=== PATIENT | female | born 1960 | race Hispanic/Latino ===

== ENCOUNTER 2017-09-25 23:14 | Emergency (ER) | payer BC ==
[~2017-09-25] VITALS: Ht 165.1 cm; Wt 81.2 kg
--- NOTE | 2017-09-26 01:17 | Diagnostic Imaging Report ---
EXAMINATION: CHEST SINGLE (PORTABLE) INDICATION: Status post fall. COMPARISON: None FINDINGS: TUBES and LINES: None. LUNGS: Lungs are well inflated. Lungs are clear. There is no evidence of pneumonia or pulmonary edema. PLEURA: No pleural effusion or pneumothorax. HEART AND MEDIASTINUM: The cardiomediastinal silhouette is unremarkable. BONES AND SOFT TISSUES: No acute osseous lesion. Soft tissues are unremarkable. UPPER ABDOMEN: No free air under the diaphragm. IMPRESSION: No acute thoracic abnormality. Signed by: Dr. Javier Sr M.D. on 09/26/2017 1:14 AM
--- NOTE | 2017-09-26 01:31 | Diagnostic Imaging Report ---
EXAMINATION: Head CT without contrast. HISTORY:Fall. COMPARISON:None. TECHNIQUE: Multidetector axial images were obtained from the foramen magnum to the vertex without contrast. The images were reconstructed using brain and bone algorithms. Thin section brain images were reformatted into coronal and sagittal planes. Intravenous contrast: None IMAGE QUALITY: Acceptable. FINDINGS: Skull/scalp: Minimal left frontal scalp edema. No acute depressed or displaced calvarial fracture. Nonspecific punctate radiopaque density in the midoccipital scalp may represent calcification or foreign body. Parenchyma: No abnormal density. No acute hemorrhage, mass or acute major vascular territorial infarct. Arteries: No density suggestive of thrombosis. Dural sinuses: No abnormal density suggestive of thrombosis. Ventricles: No hydrocephalus or displacement. Extra-axial spaces: No abnormal density. Brain volume: Mild generalized cerebral volume loss. Craniocervical junction: No mass, Chiari malformation, or basilar invagination. Sella: No mass. Paranasal/mastoid sinuses: Imaged portions unremarkable. IMPRESSION: 1. Mild left frontal scalp edema. No acute fracture. 2. No acute posttraumatic intracranial abnormality. 3. Mild generalized cerebral volume loss. Signed by: Dr. Gale Holland M.D. on 09/26/2017 1:27 AM
--- NOTE | 2017-09-26 01:36 | Diagnostic Imaging Report ---
History: Fall. Comparison studies: None Technique: Axial images were obtained through the cervical region.. Coronal and sagittal images reconstructed from the axial data.. Intravenous contrast: None Findings: Fractures: None. Soft tissue injuries: None. Atlantoaxial articulation: Intact. Alignment: Loss of normal cervical lordosis is either positional or due to muscle spasm. No scoliosis. Cervicomedullary junction: No abnormalities. The foramen magnum is patent. Soft tissues: No abnormalities. Vertebrae: No fractures, infection or neoplasm. Congenital posterior fusion defect of C1. Degenerative changes: C2-C3: Severe left foraminal stenosis due to facet and uncovertebral arthrosis. C3-C4: Severe left foraminal stenosis due to facet and uncovertebral arthrosis. C4-C5: Severe right and mild left foraminal stenosis due to facet and uncovertebral arthrosis. C5-C6: Posterior disc osteophyte complex without canal stenosis. Mild right and moderate left foraminal stenosis due to facet and uncovertebral arthrosis. C6-C7: Mild left foraminal stenosis due to facet and uncovertebral arthrosis. IMPRESSION: 1. No acute cervical spine fracture. Loss of normal cervical lordosis is either positional or due to muscle spasm. 2. Ligament, spinal cord and or vascular abnormalities cannot be excluded on the basis of this examination. 3. Cervical spondylosis as detailed above. Signed by: Dr. Gale Holland M.D. on 09/26/2017 1:32 AM
== END 2017-09-26 02:39 | disposition home or self-care (01) ==
LOC: ER 23:14
DX: S00.83XA Contusion of other part of head, initial encounter (principal); M54.2 Cervicalgia; S16.1XXA Strain of muscle, fascia and tendon at neck level, initial encounter; W01.0XXA Fall on same level from slipping, tripping and stumbling without subsequent striking against object, initial encounter; Y92.008 Other place in unspecified non-institutional (private) residence as the place of occurrence of the external cause; I10 Essential (primary) hypertension; F32.9 Major depressive disorder, single episode, unspecified
CPT/HCPCS: 70450; 71010; 72125; 99283